=== PATIENT | female | born 1960 | race Caucasian/White ===

== ENCOUNTER 2019-03-04 20:41 | Emergency (ER) | payer OTHER ==
[~2019-03-04] VITALS: Ht 165.1 cm; Wt 49.9 kg
[~2019-03-04 20:41] MED LIST: Cortisporin Ear10 ML BOTHEARS; HYDACE5 PO; IBUP600 PO; METTREX2.5 PO; NAPR500 PO; NAPR550 PO; OXYACE5T PO; RXTRAM50 PO; SULI200 PO; TRAM50 PO
[2019-03-04] MEDS ORDERED: HYDCOR20 PO (21:04)
[2019-03-04] MEDS ORDERED: Cleocin HCl300 MG PO (21:05)
== END 2019-03-04 21:20 | disposition home or self-care (01) ==
LOC: ER 20:41
DX: L97.529 Non-pressure chronic ulcer of other part of left foot with unspecified severity (principal); L03.032 Cellulitis of left toe; Z88.0 Allergy status to penicillin; Z79.899 Other long term (current) drug therapy; F32.9 Major depressive disorder, single episode, unspecified; F41.9 Anxiety disorder, unspecified; F17.290 Nicotine dependence, other tobacco product, uncomplicated
CPT/HCPCS: 99283

== ENCOUNTER 2021-05-22 15:40 | Emergency (ER) | payer OTHER ==
[~2021-05-22] VITALS: Ht 167.6 cm; Wt 52.2 kg
[~2021-05-22 15:40] MED LIST changes: +Cleocin HCl300 MG PO; +HYDCOR20 PO
== END 2021-05-22 18:27 | disposition home or self-care (01) ==
LOC: ER 15:40
DX: U07.1 COVID-19 (principal); F17.200 Nicotine dependence, unspecified, uncomplicated; Z88.0 Allergy status to penicillin
CPT/HCPCS: 36415; 99285; A9270; J7030

== ENCOUNTER 2021-09-24 12:09 | Emergency (ER) | payer OTHER ==
[~2021-09-24] VITALS: Ht 167.6 cm; Wt 49.9 kg
[2021-09-24] MEDS ORDERED: NAPR500 PO (12:59)
[2021-09-24] MEDS ORDERED: CEPH500 PO (13:06)
== END 2021-09-24 13:15 | disposition home or self-care (01) ==
LOC: ER 12:09
DX: M54.6 Pain in thoracic spine (principal); M06.9 Rheumatoid arthritis, unspecified; L73.9 Follicular disorder, unspecified; L03.90 Cellulitis, unspecified; Z88.0 Allergy status to penicillin; Z79.899 Other long term (current) drug therapy; F17.290 Nicotine dependence, other tobacco product, uncomplicated
CPT/HCPCS: 72020; A9270

== ENCOUNTER → 2023-02-24 | Outpatient (CLI) | payer OTHER ==
[~2023-02-24] MED LIST changes: +CEPH500 PO
[2023-02-24 15:34] LABS: BASOPHILS ABSOLUTE AUTO 0.06 K/mm3 (0.00-0.23); BASOPHILS PERCENT AUTO 1 % (0-2); EOSINOPHILS ABSOLUTE AUTO 0.33 K/mm3 (0.00-0.68); EOSINOPHILS PERCENT AUTO 4 % (0-6); Hematocrit 38.8 % (33.0-51.0); Hemoglobin 12.6 g/dL (11.5-16.0); IMMATURE GRAN ABSOLUTE AUTO 0.02 K/mm3 (0.00-0.10); IMMATURE GRAN PERCENT AUTO 0 % (0-1); LYMPHOCYTES ABSOLUTE AUTO 2.16 K/mm3 (0.84-5.20); LYMPHOCYTES PERCENT AUTO 23 % (21-46); MONOCYTES ABSOLUTE AUTO 0.47 K/mm3 (0.16-1.47); MONOCYTES PERCENT AUTO 5 % (4-13); Mean Corpuscular HGB 28.4 pg (26.0-34.0); Mean Corpuscular HGB Conc 32.5 g/dL (31.5-36.5); Mean Corpuscular Volume 88 fL (80-100); Mean Platelet Volume 10.8 fL (9.1-12.4); NEUTROPHILS ABSOLUTE AUTO 6.29 K/mm3 (1.96-9.15); NEUTROPHILS PERCENT AUTO 68 % (41-73); Platelet Count 374 K/mm3 (150-400); RDW Coefficient Variation 14.1 % (11.7-14.2); RDW Standard Deviation 45.4 fL (35.1-46.3); Red Blood Cell Count 4.43 M/mm3 (3.80-5.20); White Blood Cell Count 9.33 K/mm3 (4.00-11.30)
[2023-02-24 15:54] LABS: Albumin, Blood 3.4 g/dL (3.4-5.0); Albumin/Globulin Ratio 0.9 (0.8-1.8); Bilirubin, Total 0.2 mg/dL (0.1-1.0); Calcium, Blood 8.8 mg/dL (8.5-10.1); Creatinine, Blood 0.94 mg/dL (0.40-1.00); Globulin, Blood 3.6 g/dL (2.2-4.0); Potassium, Blood 4.2 mmol/L (3.5-5.5); Thyroid Stimulating Hormone 1.18 uIU/mL (0.360-4.800)
== END | disposition home or self-care (01) ==
LOC: LAB 15:30 → LAB SHORT 15:30
PROVIDERS: Physician Assistant
DX: R53.83 Other fatigue (principal)
CPT/HCPCS: 80053; 84443; 85025; 85651

== ENCOUNTER 2024-04-29 19:03 | Emergency (ER) | payer OTHER ==
[~2024-04-29] VITALS: Ht 165.1 cm; Wt 49.9 kg
[2024-04-29 19:13] VITALS: BP 132/95
[2024-04-29] MEDS ORDERED: OCUFLOX510 RIGHTEAR (20:18)
[2024-04-29] MEDS ORDERED: Ofloxacin 0.3% Otic Soln 5 ML RIGHTEAR ONE (20:20)
[2024-04-29] MEDS ORDERED: Ketorolac Tromethamine 15mg Vial IM ONE (20:30)
== END 2024-04-29 20:30 | disposition home or self-care (01) ==
LOC: ER 19:03
DX: H60.91 Unspecified otitis externa, right ear (principal)
CPT/HCPCS: 99282; A9270

== ENCOUNTER 2024-05-01 15:29 | Emergency (ER) | payer OTHER ==
[~2024-05-01] VITALS: Ht 167.6 cm; Wt 54.4 kg
[~2024-05-01 15:29] MED LIST changes: +OCUFLOX510 RIGHTEAR
[2024-05-01 15:31] VITALS: BP 125/99
== END 2024-05-01 16:17 | disposition home or self-care (01) ==
LOC: ER 15:29
DX: H60.91 Unspecified otitis externa, right ear (principal); F17.200 Nicotine dependence, unspecified, uncomplicated; Z88.0 Allergy status to penicillin; Z79.01 Long term (current) use of anticoagulants
CPT/HCPCS: 99282

== ENCOUNTER 2024-07-22 18:48 | Emergency (ER) | payer OTHER ==
[~2024-07-22] VITALS: Ht 167.6 cm; Wt 53.1 kg
[~2024-07-22 18:48] MED LIST changes: +Amoxicillin875 MG PO
[2024-07-22 19:35] LABS: BASOPHILS ABSOLUTE AUTO 0.06 K/mm3 (0.00-0.23); BASOPHILS PERCENT AUTO 1 % (0-2); EOSINOPHILS ABSOLUTE AUTO 0.12 K/mm3 (0.00-0.68); EOSINOPHILS PERCENT AUTO 1 % (0-6); Hematocrit 35.5 % (33.0-51.0); Hemoglobin 11.1 g/dL (11.5-16.0); IMMATURE GRAN ABSOLUTE AUTO 0.02 K/mm3 (0.00-0.10); IMMATURE GRAN PERCENT AUTO 0 % (0-1); LYMPHOCYTES ABSOLUTE AUTO 2.07 K/mm3 (0.84-5.20); LYMPHOCYTES PERCENT AUTO 20 % (21-46); MONOCYTES ABSOLUTE AUTO 0.55 K/mm3 (0.16-1.47); MONOCYTES PERCENT AUTO 5 % (4-13); Mean Corpuscular HGB 26.2 pg (26.0-34.0); Mean Corpuscular HGB Conc 31.3 g/dL (31.5-36.5); Mean Corpuscular Volume 84 fL (80-100); Mean Platelet Volume 10.8 fL (9.1-12.4); NEUTROPHILS ABSOLUTE AUTO 7.48 K/mm3 (1.96-9.15); NEUTROPHILS PERCENT AUTO 73 % (41-73); Platelet Count 496 K/mm3 (150-400); RDW Coefficient Variation 14.4 % (11.7-14.2); RDW Standard Deviation 44.2 fL (35.1-46.3); Red Blood Cell Count 4.23 M/mm3 (3.80-5.20)
[2024-07-22 19:41] LABS: Influenza A, PCR NEGATIVE (NEGATIVE); Influenza B, PCR NEGATIVE (NEGATIVE); Resp Syncytial Virus, PCR NEGATIVE (NEGATIVE); SARS-Cov-2 (COVID-19) PCR, MMC NEGATIVE (NEGATIVE)
[2024-07-22 19:58] LABS: Albumin, Blood 2.9 g/dL (3.4-5.0); Albumin/Globulin Ratio 0.6 (0.8-1.8); Bilirubin, Total 0.4 mg/dL (0.1-1.0); Bun/Creatinine Ratio 19.8 (12.0-20.0); Calcium, Blood 8.9 mg/dL (8.5-10.1); Creatinine, Blood 0.76 mg/dL (0.40-1.00); Globulin, Blood 4.7 g/dL (2.2-4.0); Potassium, Blood 3.7 mmol/L (3.5-5.5); Total Protein, Blood 7.6 g/dL (6.4-8.2)
[2024-07-22 22:30] VITALS: BP 132/93
[2024-07-22] MEDS ORDERED: Ipratropium/Albuterol SulF 2.5-0.5MG/3 ML Amp INH ONE (22:50)
== END 2024-07-23 23:58 | disposition left against medical advice (07) ==
LOC: ER 18:48
PROVIDERS: Student in an Organized Health Care Education/Training Program
DX: R06.02 Shortness of breath (principal); R79.89 Other specified abnormal findings of blood chemistry; F17.210 Nicotine dependence, cigarettes, uncomplicated; Z79.899 Other long term (current) drug therapy; Z88.0 Allergy status to penicillin
CPT/HCPCS: 0241U; 71046; 80053; 83880; 84484; 85025; 85379; 93005; 93010; 94640; 94664; 99285-25

== ENCOUNTER 2024-12-23 18:29 | Emergency (ER) | payer OTHER ==
[~2024-12-23] VITALS: Ht 167.6 cm; Wt 52.2 kg
[2024-12-23] MEDS ORDERED: Lactated Ringer's 1,000 ML IV ONE (19:35)
[2024-12-23 19:55] LABS: BASOPHILS ABSOLUTE AUTO 0.04 K/mm3 (0.00-0.23); BASOPHILS PERCENT AUTO 0 % (0-2); EOSINOPHILS ABSOLUTE AUTO 0.09 K/mm3 (0.00-0.68); EOSINOPHILS PERCENT AUTO 1 % (0-6); Hematocrit 41.2 % (33.0-51.0); Hemoglobin 13.3 g/dL (11.5-16.0); IMMATURE GRAN ABSOLUTE AUTO 0.04 K/mm3 (0.00-0.10); IMMATURE GRAN PERCENT AUTO 0 % (0-1); LYMPHOCYTES ABSOLUTE AUTO 1.34 K/mm3 (0.84-5.20); LYMPHOCYTES PERCENT AUTO 11 % (21-46); MONOCYTES ABSOLUTE AUTO 0.75 K/mm3 (0.16-1.47); MONOCYTES PERCENT AUTO 6 % (4-13); Mean Corpuscular HGB 26.7 pg (26.0-34.0); Mean Corpuscular HGB Conc 32.3 g/dL (31.5-36.5); Mean Corpuscular Volume 83 fL (80-100); Mean Platelet Volume 11.3 fL (9.1-12.4); NEUTROPHILS ABSOLUTE AUTO 10.53 K/mm3 (1.96-9.15); NEUTROPHILS PERCENT AUTO 82 % (41-73); Platelet Count 337 K/mm3 (150-400); RDW Coefficient Variation 14.8 % (11.7-14.2); RDW Standard Deviation 44.3 fL (35.1-46.3); Red Blood Cell Count 4.98 M/mm3 (3.80-5.20); White Blood Cell Count 12.79 K/mm3 (4.00-11.30)
[2024-12-23 20:21] LABS: Magnesium, Blood 2.3 mg/dL (1.6-2.4)
[2024-12-23 20:27] LABS: Albumin, Blood 3.5 g/dL (3.4-5.0); Albumin/Globulin Ratio 0.8 (0.8-1.8); Bilirubin, Total 0.6 mg/dL (0.1-1.0); Calcium, Blood 9.2 mg/dL (8.5-10.1); Creatinine, Blood 0.87 mg/dL (0.40-1.00); Globulin, Blood 4.2 g/dL (2.2-4.0); Potassium, Blood 3.4 mmol/L (3.5-5.5); Total Protein, Blood 7.7 g/dL (6.4-8.2)
[2024-12-23 21:00] VITALS: BP 111/80
[2024-12-23 21:00] LABS: CORONAVIRUS COVID-19 AG Negative (NEGATIVE); INFLUENZA A AG Negative (NEGATIVE); INFLUENZA B AG Negative (NEGATIVE)
[2024-12-23] MEDS ORDERED: Doxycycline Hyclate 100 MG TAB PO ONE (21:00)
[2024-12-23] MEDS ORDERED: DOXY100 PO (21:02)
== END 2024-12-23 21:30 | disposition home or self-care (01) ==
LOC: ER 18:29
PROVIDERS: Student in an Organized Health Care Education/Training Program
DX: J18.9 Pneumonia, unspecified organism (principal); F17.200 Nicotine dependence, unspecified, uncomplicated; Z79.899 Other long term (current) drug therapy; Z88.0 Allergy status to penicillin
CPT/HCPCS: 71046; 80053; 83735; 84484; 85025; 87428-QW; 93005; 93010; 96360; 99285-25; A9270; J7120

== ENCOUNTER 2025-08-17 18:39 | Emergency (ER) | payer OTHER | END 2025-08-17 21:56 | disposition home or self-care (01) | LOC: ER 18:39 | DX: U07.1 COVID-19 (principal); Z88.0 Allergy status to penicillin; Z79.899 Other long term (current) drug therapy ==